=== PATIENT | female | born 1950 | race Caucasian/White ===

== ENCOUNTER 2016-03-30 05:56 | Day surgery (SDC) | payer MEDICARE, BC ==
[2016-03-30] MEDS ORDERED: Lactated Ringers 1,000 ML IV SCH (06:00)
[2016-03-30] MEDS ORDERED: DIPRIVAN 200 MG/20 ML IV ONE (08:00)
[2016-03-30] MEDS ORDERED: Versed 2 MG/2 ML Injection IV ONE (08:00)
[2016-03-30] MEDS ORDERED: SUBLIMAZE 100 MCG/2 ML IV ONE (08:00)
[2016-03-30] MEDS ORDERED: Ephedrine Sulfate 50 MG/ML IV ONE (08:00)
[2016-03-30] MEDS ORDERED: Lactated Ringers 1,000 ML IV ONE (08:32)
--- NOTE | 2016-03-30 08:53 | OP ---
SURGERY DATE/TIME: 03/30/2016 0749 PREOPERATIVE DIAGNOSIS: History of colon polyps. POSTOPERATIVE DIAGNOSIS: Normal colon. PROCEDURE: Colonoscopy. SURGEON: Dr. Desai. ANESTHESIA: MAC. Medications given by anesthesia department. HISTORY: The patient is a 66 year-old white female presenting now for reinvestigation. She previously had colonoscopy where colon polyps had been removed. The patient reports the previous one was four years ago. The patient was felt the need to have reinvestigation. She was reappraised of the risks of the procedure including the risk of perforation, phlebitis, untoward reaction to medication, bleeding, and missed lesions. The patient verbalized her understanding and desired to have the procedure performed. DESCRIPTION OF PROCEDURE: The patient was given the medications by the anesthesia department. The patient had continuous pulse oximetry, ECG monitoring, intermittent blood pressure monitoring, and tidal CO2 monitoring during the examination. She was placed in the left lateral decubitus position. A digital rectal examination was performed and revealed normal anal sphincter tone and no masses. The flexible Olympus pediatric colonoscope was used to intubate the rectum. A view of the colon was developed sequentially to the cecum. Upon insertion and withdrawal, including a retroflex view in the rectum, no mucosal lesions were encountered. The scope was removed from the patient who tolerated the procedure well and was sent back to OP recovery in good condition. The prep was noted to be fair to good.
[2016-03-30 09:28] VITALS: O2SAT 100
[2016-03-30 10:06] VITALS: BP 108/59; PULSE 57
== END 2016-03-30 09:50 | disposition home or self-care (01) ==
LOC: SDC 05:56
PROVIDERS: ATTEND Family Medicine
PROC: 0DJD8ZZ Inspection of Lower Intestinal Tract, Via Natural or Artificial Opening Endoscopic (ICD-10-PCS; principal; 2016-03-30)
DX: Z86.010 Personal history of colon polyps (principal); E11.9 Type 2 diabetes mellitus without complications; I10 Essential (primary) hypertension; E03.9 Hypothyroidism, unspecified
CPT/HCPCS: 00810; J2250; J2704; J3010